=== PATIENT | female | born 1945 | race Caucasian/White ===

== ENCOUNTER 2022-05-27 13:24 | Outpatient (CLI) | payer MEDICARE, BC, SELFPAY ==
--- NOTE | 2022-05-27 13:40 | CRLHL7_ITS ---
For Patients: As a result of the Cures Act, medical imaging exams and procedure reports are released immediately into your electronic medical record. You may view this report before your referring provider. If you have questions, please contact your health care provider. BILATERAL DIGITAL SCREENING MAMMOGRAM WITH COMPUTER-AIDED DETECTION CLINICAL HISTORY: Routine screening exam. COMPARISON: 12/22/2020, 03/30/2019, 08/03/2016, 04/09/2015. TECHNIQUE: Digital mammogram in CC and MLO projections including computer-aided detection (CAD). BREAST COMPOSITION: The breasts are heterogeneously dense, which may obscure small masses. FINDINGS: RIGHT Breast: Focal nodular density within the medial breast CC view only 7 cm from the nipple. LEFT Breast: No suspicious findings. IMPRESSION: RIGHT breast asymmetry/mass. RECOMMENDATIONS: Additional mammographic views of the RIGHT breast including 3D spot compression CC, 3D MLO. RIGHT breast ultrasound may also be required. [facility] will contact the patient for follow-up. BI-RADS Category 0: Incomplete: Need Additional Imaging Evaluation and/or Prior Mammograms for Comparison A lay language report of this examination will be provided to the patient. Dictated by Marco A Deleon MD @ 05/28/2022 8:49:27 AM jj/Dictated by: Marco A Deleon MD @ 05/28/2022 8:49:00 AM (Electronically Signed)
== END 2022-05-27 13:25 | disposition home or self-care (01) ==
LOC: MAMMO 13:27
PROVIDERS: PCP Internal Medicine; Visit Provider Internal Medicine
DX: Z12.31 Encounter for screening mammogram for malignant neoplasm of breast (principal); N63.10 Unspecified lump in the right breast, unspecified quadrant
CPT/HCPCS: 77063; 77067

== ENCOUNTER 2022-06-07 10:50 | Outpatient (CLI) | payer MEDICARE, BC, SELFPAY ==
--- NOTE | 2022-06-07 10:45 | CRLHL7_ITS ---
For Patients: As a result of the Cures Act, medical imaging exams and procedure reports are released immediately into your electronic medical record. You may view this report before your referring provider. If you have questions, please contact your health care provider. DIGITAL DIAGNOSTIC RIGHT MAMMOGRAM USING TOMOSYNTHESIS AND COMPUTER-AIDED DETECTION RIGHT BREAST ULTRASOUND CLINICAL HISTORY: RIGHT breast mass/asymmetry. COMPARISON: 05/27/2022. TECHNIQUE: Digital RIGHT mammogram in two projections. Tomosynthesis and CAD utilized. Real-time ultrasound imaging of RIGHT breast with imaging documentation. BREAST COMPOSITION: The breast is heterogeneously dense, which may obscure small masses. FINDINGS: 3D spot compression CC/MLO RIGHT breast mammogram submitted. Persistent nodular density within the lower inner quadrant RIGHT breast without architectural distortion. Benign calcifications are present. Targeted RIGHT breast ultrasound performed. At 5 o`clock 5 cm from the nipple there is a solid and cystic structure which measures 11 x 6 x 10 millimeters. IMPRESSION: Solid and cystic the structure RIGHT breast 5 o`clock 5 cm from the nipple measuring 11 millimeters. RECOMMENDATIONS: Ultrasound-guided core needle biopsy recommended. Results and recommendations discussed with the patient. BI-RADS Category 4: Suspicious A lay language report of this examination will be provided to the patient. Dictated by Marco A Deleon MD @ 06/07/2022 12:06:29 PM samantha/Dictated by: Marco A Deleon MD @ 06/07/2022 12:06:00 PM (Electronically Signed)
--- NOTE | 2022-06-07 11:15 | CRLHL7_ITS ---
For Patients: As a result of the Cures Act, medical imaging exams and procedure reports are released immediately into your electronic medical record. You may view this report before your referring provider. If you have questions, please contact your health care provider. PLEASE SEE DIGITAL DIAGNOSTIC RIGHT MAMMOGRAM PERFORMED SAME DAY CRL:[email or web address] singh/Dictated by: Marco A Deleon MD @ 06/07/2022 12:06:00 PM (Electronically Signed)
== END 2022-06-07 10:51 | disposition home or self-care (01) ==
PROVIDERS: PCP Internal Medicine; Visit Provider Internal Medicine
DX: N63.10 Unspecified lump in the right breast, unspecified quadrant (principal); N60.01 Solitary cyst of right breast; R92.8 Other abnormal and inconclusive findings on diagnostic imaging of breast
CPT/HCPCS: 76642; 77065; G0279

== ENCOUNTER 2022-06-09 10:21 | Outpatient (CLI) | payer MEDICARE, BC, SELFPAY ==
--- NOTE | 2022-06-09 10:15 | CRLHL7_ITS ---
For Patients: As a result of the Century Cures Act, medical imaging exams and procedure reports are released immediately into your electronic medical record. You may view this report before your referring provider. If you have questions, please contact your health care provider. ULTRASOUND-GUIDED BREAST BIOPSY AND POST-BIOPSY DIGITAL MAMMOGRAM FOR BIOPSY MARKER PLACEMENT CLINICAL HISTORY: Solid and cystic nodule RIGHT breast. COMPARISON STUDIES: 05/27/2022, 06/07/2022. TECHNIQUE: Real-time ultrasound with image documentation was used for targeting the breast lesion. Core biopsy specimens were obtained using an automated gun with an 18-gauge biopsy needle. Post-biopsy CC and ML digital mammograms were obtained to document position of the biopsy marker. CONSENT and TIME OUT: The procedure, risks, and alternatives were explained to the patient and a consent was signed. [place] Protocol was followed including pre-procedure verification that relevant information/documentation was available, reviewed and properly matched to the patient; consent accurate and complete; and equipment and supplies available. Time Out was conducted just prior to starting procedure to verify the four required elements: patient identity, correct side/site marked (if applicable), procedure, relevant images/results properly labeled and displayed (if applicable). PROCEDURE: The patient was positioned supine on the ultrasound table. The breast was prepped with ChloraPrep. 10 cc of 1 percent lidocaine used for local anesthesia. Core samples were obtained. A sterile metal biopsy clip was placed percutaneously to mireya the lesion position within the breast. The specimens were placed in 10% formalin and sent to the pathology department. Pressure was held on the biopsy site until all bleeding subsided. The skin incision was closed with Steri-Strips. An ice pack was positioned over the biopsy site. Post-biopsy instructions were reviewed with the patient, and a written copy was given to her. LATERALITY: RIGHT breast. LESION: Circumscribed solid and cystic nodule measuring 9 x 9 x 10 millimeters at 5 o`clock 5 cm from the nipple. SUSPICION FOR MALIGNANCY: Low. NUMBER OF SAMPLES: 5. BIOPSY CLIP SHAPE: Coil. PROXIMITY OF CLIP TO TARGET: Adjacent to the lesion. IMPRESSION: Ultrasound-guided breast biopsy. The lesion decreased in size during the examination suggestive of primarily cystic components. When the pathology report is available, an addendum to this report will be made. ACR not applicable Dictated by Marco A Deleon MD @ 06/09/2022 12:21:00 PM jj/Dictated by: Marco A Deleon MD @ 06/09/2022 12:21:00 PM ----- ADDENDUM ----- IMPRESSION: Pathology consistent with benign breast tissue, negative for atypia/malignancy. This is concordant. Resume annual bilateral screening mammography. Dictated by Marco A Deleon MD @ Jun 09 2022 12:21PM Signed by:?Marco A Deleon MD @06/09/2022 4:13:09 PM (Electronically Signed)
--- NOTE | 2022-06-09 11:00 | CRLHL7_ITS ---
For Patients: As a result of the Cures Act, medical imaging exams and procedure reports are released immediately into your electronic medical record. You may view this report before your referring provider. If you have questions, please contact your health care provider. PLEASE SEE ULTRASOUND-GUIDED RIGHT BIOPSY PERFORMED SAME DAY CRL:[email or web address] [email or web address]/Dictated by: Marco A Deleon MD @ 06/09/2022 12:18:00 PM (Electronically Signed)
== END 2022-06-09 10:22 | disposition home or self-care (01) ==
LOC: US 10:23
PROVIDERS: PCP Internal Medicine; Visit Provider Internal Medicine
DX: N63.10 Unspecified lump in the right breast, unspecified quadrant (principal); R92.8 Other abnormal and inconclusive findings on diagnostic imaging of breast
CPT/HCPCS: 19083; 77065; 88305; A4648; A4649

== ENCOUNTER 2022-07-30 10:56 | Outpatient (CLI) | payer MEDICARE, BC, SELFPAY ==
[2022-07-30 10:47] LABS: Albumin* 4.3 g/dL (3.3-5.0); Chloride* 108 mmol/L (96-114); Sodium* 143 mmol/L (135-149)
[2022-07-30 10:48] LABS: Potassium* 3.8 mmol/L (3.6-5.1)
[2022-07-30 10:50] LABS: Alanine Aminotransferase* 17 U/L (4-35); Alkaline Phosphatase* 80 U/L (40-150); Aspartate Amino Transferase* 19 U/L (12-35); Bilirubin Total* 0.8 mg/dL (0.1-1.5); Blood Urea Nitrogen* 20 mg/dL (7-30); Calcium* 9.4 mg/dL (8.4-10.6); Carbon Dioxide* 24 mmol/L (20-32); Cholesterol* 236 mg/dL (90-199); Creatinine* 0.8 mg/dL (0.5-1.5); Estimated Glomerular Filt Rate 77 ml/min; Glucose* 161 mg/dL (60-115); Total Protein* 6.7 g/dL (6.0-8.3)
[2022-07-30 10:51] LABS: HDL Cholesterol* 38 mg/dL (>=50); LDL Cholesterol Calculated 100 mg/dL (<100); Triglycerides* 489 mg/dL (40-149)
[2022-07-30 11:04] LABS: Creatinine Urine 331.9 mg/dL
[2022-07-30 11:08] LABS: Microalbumin Urine 5 mg/dL
[2022-07-30 12:13] LABS: Microalbumin Creatinine Ratio 15 mg/g (0-30)
== END 2022-07-30 10:57 | disposition home or self-care (01) ==
PROVIDERS: PCP Internal Medicine; Visit Provider Internal Medicine
DX: E11.9 Type 2 diabetes mellitus without complications (principal); E78.5 Hyperlipidemia, unspecified; I10 Essential (primary) hypertension; R80.9 Proteinuria, unspecified; R07.89 Other chest pain
CPT/HCPCS: 80053; 80061; 82043; 82570

== ENCOUNTER 2023-06-28 15:48 | Outpatient (CLI) | payer MEDICARE, BC, SELFPAY ==
--- NOTE | 2023-06-28 15:40 | CRLHL7_ITS ---
For Patients: As a result of the Century Cures Act, medical imaging exams and procedure reports are released immediately into your electronic medical record. You may view this report before your referring provider. If you have questions, please contact your health care provider. BILATERAL SCREENING MAMMOGRAM WITH COMPUTER-AIDED DETECTION AND TOMOSYNTHESIS TECHNIQUE: CC and MLO views were obtained. These mammographic images have been obtained using full-field digital technique. These mammographic images were interpreted with the benefit of computer-aided detection. Breast Tomosynthesis was used in this interpretation. COMPARISON FILM: 05/27/22, 12/22/20, 03/30/19. FINDINGS: The breasts are heterogeneously dense, which may obscure small masses IMPRESSION: There is no radiographic evidence for malignancy. ASSESSMENT: BI-RADS Category 2: Benign RECOMMENDATION: Routine screening mammogram in 1 year. A lay language report of this examination will be provided to the patient. Marco A Deleon M.D. Diagnostic Radiologist [email or web address] MARGUERITE/Dictated by: Marco A Deleon MD @ 06/29/2023 8:42:00 AM (Electronically Signed)
== END 2023-06-28 15:49 | disposition home or self-care (01) ==
LOC: MAMMO 15:50
PROVIDERS: PCP Internal Medicine; Visit Provider Internal Medicine
DX: Z12.31 Encounter for screening mammogram for malignant neoplasm of breast (principal); R92.2 Inconclusive mammogram
CPT/HCPCS: 77063; 77067

== ENCOUNTER 2024-02-24 12:39 | Outpatient (CLI) | payer MEDICARE, BC, SELFPAY ==
--- OUTSIDE RECORDS SUMMARY | 2024-02-24 12:43 | XMS_ITS | Encounter Summary ---
Author Organization [facility] Address [address] [place] [address]. [place] [address] Care Team Providers Care Sales Special Agent Name Role Phone None Primary Care Provider Unavailjulia e Ying Gutierrez MD Unavailable Katie Bowen MD Unavailable [phone] Geneva Weber RN Unavailable Kiana Villanueva Np PERIOPERATIVE ASSISTANT Unavailable [phone] Christina Lilly MD Unavailable No Ref-Primary, Physician Primary Care Provider Kiarra Winter RN Unavailable Christina Lilly MD Unavailable [facility], Rangel Romero Primary Care Provider + Encounter Details Date Type Department Care Team (Late st Contact Info) Description 11/28/2016 [facility] Medical Advice [facility] [address] [place] [address] Lima Fraga APRN [facility] [address] [facility] [address] [place] [address] Social History Tobacco Use Types Packs/Day Years Used Date Smoking Tobacco: Former Cigarettes 0 08/08/1954 - 08/08/1969 Smokeless Tobacco: Never Alcohol Use Standard Drinks/Week Comments No 0 (1 standard drink = 0.6 oz pur e alcohol) Sex and Gender Information Value Date Recorded Sex Assigned at Female 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 Gender Identity Female 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 Sexual Orientation Not on file documented as of this encounter Plan of Treatment Not on file documented as of this encounter Visit Diagnoses Not on filedocumented in this encounter Care Teams Sales Special Agent Relationship Specialty Start Date End Date None PCP - General 10/26/16 04/07/17 No Ref-Primary, Physician PCP - General 06/07/23 07/12/23 [facility], Rangel Romero [address] [place] [address] [place] [phone] PCP - General 07/13/23 Ying Gutierrez MD [address] [place] [address] [id number] MD Oncology 11/02/16 Katie Bowen MD [address] [place] [address] [phone] Gynecologic Oncology 11/02/16 Geneva Weber RN [facility] [employer], [phone] Continuity Bakery Decorator Gynecologic Oncology 11/08/16 12/12/19 Kiana Villanueva Certified Activities Director, PERIOPERATIVE ASSISTANT [address] [place] [phone] Nurse Practitioner 06/07/23 Christina Lilly MD [address] [place] [phone] Gynecologic Oncology 06/07/23 Kiarra Winter, VAN Specialty Bakery Decorator Hematology & Oncology 06/14/23 Christina Lilly MD [address] [phone] Assigned Cancer Care Provider 06/25/23 documented as of this encounter
--- OUTSIDE RECORDS SUMMARY | 2024-02-24 12:43 | XMS_ITS | Encounter Summary ---
Author Organization [facility] Address [address] [place] [address]. [place] [address] Care Team Providers Care Computer Hardware Developer Name Role Phone None Primary Care Provider Unavailjulia e Ying Gutierrez MD Unavailable Katie Bowen MD Unavailable eGneva Weber RN Unavailable Kiana Villanueva Np INDUSTRIAL AERIAL INSTALLER Unavailable Christina Lilly MD Unavailable No Ref-Primary, Physician Primary Care Provider Kiarra Winter RN Unavailable Christina Lilly MD Unavailable [facility], Rangel Romero Primary Care Provider + Encounter Details Date Type Department Care Team (Late st Contact Info) Description 12/12/2016 [facility] Medical Advice [facility] [address] [place] [address] Lima Fraga APRN [facility] [address] [facility] [address] [place] [address] Social History Tobacco Use Types Packs/Day Years Used Date Smoking Tobacco: Former Cigarettes 0 08/08/1954 - 08/08/1969 Smokeless Tobacco: Never Alcohol Use Standard Drinks/Week Comments No 0 (1 standard drink = 0.6 oz pur e alcohol) Sex and Gender Information Value Date Recorded Sex Assigned at Female 06/12/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 Gender Identity Female 06/12/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 Sexual Orientation Not on file documented as of this encounter Plan of Treatment Not on file documented as of this encounter Visit Diagnoses Not on filedocumented in this encounter Care Teams Computer Hardware Developer Relationship Specialty Start Date End Date None PCP - General 10/26/16 04/07/17 No Ref-Primary, Physician PCP - General 06/07/23 07/12/23 [facility], Rangel Romero [address] [place] [address] [place] [phone] PCP - General 07/13/23 Ying Gutierrez MD [address] [place] [address] [phone] MD Oncology 11/02/16 Katie Bowen MD [address] [place] [address] [phone] Gynecologic Oncology 11/02/16 Geneva Weber RN [facility] [place], [phone] Continuity [employer] Gynecologic Oncology 11/08/16 12/12/19 Kiana Villanueva Golf Club Repairer, INDUSTRIAL AERIAL INSTALLER [address] [place] [id number] Nurse Practitioner 06/07/23 Christina Lilly MD [address] [place] [phone] Gynecologic Oncology 06/07/23 Kiarra Winter, VAN Specialty [employer] Hematology & Oncology 06/14/23 Christina Lilly MD [address] [address] Assigned Cancer Care Provider 06/25/23 documented as of this encounter
--- OUTSIDE RECORDS SUMMARY | 2024-02-24 12:43 | XMS_ITS | Clinical Summary ---
Author Organization [facility] Address [place], [place] [address] Care Team Providers Care Simulation Educator Name Role Phone Jenny Masters MD Primary Care Provider [phone] Katie Bowen MD Unavailable [phone] Charlene Stanton PharmD Unavailable [phone] Allergies Active Allergy Reactions Criticality Noted Date Comments Iodinated Contrast Media *Unknown - Childhood Rxn 01/09/2013 Uknown contrast reaction when young. She has tolerated Isovue 300 (iopamidol - 2011 CT scan) and Omnipaque (ioxehol - 2010 and 2012 and 2015 epidural steroid injections) Medications Medication Sig Dispensed Refills Start Date End Date Status metFORMIN (GLUCOPHAGE XR) 500 mg Extended-Release tabletIndications: Type 2 diabetes mellitus without complication, without long-term current use of insulin (HC) Take 1 Tablet (500 mg) by mouth once daily with evening meal. 90 Tablet 3 06/17/20 23 Active blood sugar diagnostic (Blood Glucose Test) stripIndications:T ype 2 diabetes mellitus without complication, without long-term current use of insulin (HC) For Contour next EZ. Test 1 times per day. 100 Each 06/17/20 23 Active lancets (Microlet Lancet)Indications :Type 2 diabetes mellitus without complication, without long-term current use of insulin (HC) USE TO TEST 2-3 TIMES DAILY 300 Each 3 09/26/19 24 Active HYDROcodone-acetam inophen ([place]) (5-325 mg/tablet)Indicati ons:Chronic right-sided low back pain without sciatica Take 1 Tablet by mouth every 6 hours if needed for Pain. Max acetaminophen dose: 4000 mg in 24 hrs. 20 Tablet 10/13/19 24 Active losartan (COZAAR) 25 mg tabletIndications: Essential hypertension Take 1 Tablet (25 mg) by mouth once daily. 90 Tablet 10/17/19 24 Active glipiZIDE extended-release (GLUCOTROL XL) 10 mg Extended-Release tabletIndications: Type 2 diabetes mellitus without complication, without long-term current use of insulin (HC) TAKE 1 TABLET(10 MG) BY MOUTH DAILY BEFORE A MEAL 90 Tablet 3 01/16/20 24 Active cyanocobalamin (Vitamin B-12) 1,000 mcg tablet Take 1 Tablet (1,000 mcg) by mouth once daily. 01/16/20 24 Active loperamide (IMODIUM) 2 mg capsuleIndications :Chronic diarrhea Take 2 Capsules (4 mg) by mouth 2 times daily if needed for Diarrhea. 120 Capsule 01/16/20 24 Active amLODIPine (NORVASC) 5 mg tabletIndications: Essential hypertension Take 1 Tablet (5 mg) by mouth once daily. 90 Tablet 3 01/16/20 24 Active atenoloL (TENORMIN) 25 mg tabletIndications: Essential hypertension Take 1 Tablet (25 mg) by mouth once daily. Takes at bedtime 90 Tablet 3 01/16/20 24 Active atorvastatin (LIPITOR) 80 mg tabletIndications: Mixed hyperlipidemia Take 1 Tablet (80 mg) by mouth once daily. 90 Tablet 3 01/16/20 24 Active furosemide (LASIX) 40 mg tabletIndications: Essential hypertension Take 1 Tablet (40 mg) by mouth once daily. 90 Tablet 3 01/16/20 24 Active sertraline (ZOLOFT) 25 mg tabletIndications: Dysthymia Take 1 Tablet (25 mg) by mouth once daily. 90 Tablet 3 01/16/20 24 Active CPAPIndications:Ob structive sleep apnea CPAP (E0601) machine for home use at pressure: , Choice of mask (A7030 or A7034) w/full face cushion (A7031) x1/mo, nasal cushion (A7032) x2/mo, or nasal pillows (A7033) x 2/mo; Length of Need: 99 months; Frequency of use: Daily 02/07/20 24 Active cholecalciferol, Vitamin D3, 2,000 unit tabletIndications: Vitamin D deficiency Take 1 Tablet (2,000 units) by mouth once daily. 02/07/20 24 Active omeprazole 20 mg tabletIndications: Chronic GERD Take 1 Tablet (20 mg) by mouth once daily. 90 Tablet 02/07/20 24 Active acetaminophen (TYLENOL) 325 mg tabletIndications: Spinal stenosis of lumbar region, unspecified whether neurogenic claudication present Take 2 Tablets (650 mg) by mouth every 4 hours if needed for Pain. Max acetaminophen dose: 4000mg in 24 hrs. 02/07/20 24 Active gabapentin (NEURONTIN) 300 mg capsuleIndications :Lumbar radiculopathy Take 1 Capsule (300 mg) by mouth at bedtime. 30 Capsule 2 02/08/20 24 Active SITagliptin phosphate (Januvia) 50 mg tabletIndications: Type 2 diabetes mellitus without complication, without long-term current use of insulin (HC) TAKE 1 TABLET(50 MG) BY MOUTH DAILY 60 Tablet 02/14/20 24 Active aspirin (ECOTRIN) 81 mg enteric coated tablet Take 1 tablet by mouth once daily with a meal. 0 02/26/20 16 024 Discontinued(*M ed complete/Regime n complete/Level of care change) clotrimazole (LOTRIMIN) 1 % cream APPLY TOPICALLY TO AFFECTED AREA TWO TIMES DAILY 10/25/19 23 024 Discontinued(*M ed complete/Regime n complete/Level of care change) cholecalciferol (Vitamin D) 1,000 unit capsule Take 1,000 units by mouth once daily. 024 Discontinued(*M ed complete/Regime n complete/Level of care change) zhoiafio-czs-bxtb- vitamin K 18 mg iron-25 mcg tab Take 1 Tablet by mouth once daily. 024 Discontinued(*M ed complete/Regime n complete/Level of care change) ascorbic acid chewable 250 mg chew Chew 250 mg by mouth. 024 Discontinued(*M ed complete/Regime n complete/Level of care change) zinc gluconate 50 mg tablet Take 50 mg by mouth. 024 Discontinued(*M ed complete/Regime n complete/Level of care change) Rptng-7-TEA-EPA-Fi sh Oil 1,000 mg (120 mg-180 mg) cap Take 1 Capsule (1,000 mg) by mouth. 01/16/20 24 024 Discontinued(*M ed complete/Regime n complete/Level of care change) glucosam-chondroit -C-manganese 500-400-2-0.33 mg cap Take by mouth. 01/16/20 24 024 Discontinued(*M ed complete/Regime n complete/Level of care change) Apple Cider Vinegar 300 mg tablet Take by mouth. 01/16/20 24 024 Discontinued(*M ed complete/Regime n complete/Level of care change) SITagliptin phosphate (JANUVIA) 50 mg tabletIndications: Type 2 diabetes mellitus without complication, without long-term current use of insulin (HC) Take 1 Tablet (50 mg) by mouth once daily. 30 Tablet 01/16/20 24 024 Discontinued CPAPIndications:Ob structive sleep apnea CPAP (E0601) machine for home use at pressure: , Choice of mask (A7030 or A7034) w/full face cushion (A7031) x1/mo, nasal cushion (A7032) x2/mo, or nasal pillows (A7033) x 2/mo; Length of Need: 99 months; Frequency of use: Daily 1 Each 11 01/16/20 24 024 Discontinued(Re order (E-cancel not sent)) LORazepam (ATIVAN) 0.5 mg tabIndications:Cla ustrophobia Take 1 tablet 30 minutes before Procedure 1 Tablet 01/16/20 24 024 Discontinued(*M ed complete/Regime n complete/Level of care change) Active Problems Problem Noted Date Diagnosed Date Obstructive sleep apnea, uses CPAP 01/16/2024 Vulvar carcinoma 10/05/2016 Overview: - 10/05/2016 Radical vulvectomy with bilateral sentinel lymph node dissection. Final pathology 2.0x1.2x.4cm, grade 3, 1 positive left inguinal node <5mm. Stage IIIA. - Adjuvant RT to groins and pelvis at [facility]. Completed 5/6 cycles of weekly Cis (unable to complete last cycle due to side effects) Dyslipidemia 09/21/2016 10/31/2022 Lumbar spinal stenosis 03/05/2016 DDD (degenerative disc disease), lumbar 12/08/19 16 Type 2 diabetes mellitus wit hout complication, without long-term current use of insulin Essential hypertension Chronic diarrhea Resolved Problems Problem Noted Date Diagnosed Date Resolved Date Lumbar radicular pain 12/08/20152022 Encounters Date Type Department Care Team Description 02/22/2024 Travel 02/20/[address] [phone] Jenny Masters MD Refill Request (C-pap machine) 02/15/[address] [phone] Jenny Masters MD RETUN CALL 02/15/[address] [phone] Jenny Masters MD DME Supply 02/13/[address] [address] Charlene Stanton, PharmAmy INFORMATION FROM APPOINTMENT 02/13/2024 Patient Outreach [address] [address] Charlene Stanton PharmD Pharmacist Medication Management (CMR follow-up - return call - medication cost) 02/13/[address] [phone] Jenny Masters MD Refill Request (Januvia) 02/10/[address] [phone] Jenny Masters MD ACC Order Request (CPAP) 02/08/2024 2:00 PM CDT Office Visit [facility] [address] [place] [address] Juan Zavala MD Musculoskeletal Problem (Consult low back pain, last seen in 2015, review MRI) 02/08/2024 Patient Outreach [facility] Care Management - Advanced Care Team [address] [place] [address] Dominique Vasques Medication Management (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) 02/07/2024 1:00 PM CDT Pharmacist Medication Management [address] [address] Charlene Stanton PharmD Pharmacist Medication Management (CMR initial - provider referral - in-clinic/diabetes management) 02/07/2024 Travel 01/25/2024 2:30 PM CDT Ancillary Procedure [address] [phone] 01/25/2024 12:16 PM CDT - 01/25/2024 11:59 PM CDT Hospital Encounter [facility] [address] [place] [address] Jenny Masters MD Chronic bilateral low back pain with right-sided sciatica 01/24/2024 Travel 01/18/2024 Patient Outreach [facility] Care Management - Advanced Care Team [address] [place] [address] Dominique Vasques Medication Management (COMPREHENSIVE MEDICATION REVIEW - PROVIDER REFERRAL - unsure if covered) 01/16/2024 2:00 PM CDT Office Visit [address] [phone] Jenny Masters MD Medicare ANNUAL (subsequent) Visit (Pain in lower back that radiates to right hip. Pain Radiates down right leg. /Left foot has some Neuropathy./Head aches and Neck Ache ) 01/16/[address] [phone] Jenny Masters MD Questions 01/16/2024 Travel 01/14/[address] [phone] Jenny Masters MD Refill Request (Glipizide Extended-release) from Last 3 Months Immunizations Name Administration Dates Next Due Influenza, High-dose Quadrivalent Inactivated ,05/19/2021 Pneumococcal Poly,23-Valent (Pneumovax) 06/01/20 12 Pneumococcal conj 13-Valent (Prevnar 13) 015 Td (Age >=7 Years) 05/08/2020 Tdap 01/14/2010 Family History Medical History Relation Name Comments Throat cancer Brother 1 Heart attack Brother 2 Manuel Diabetes Father Cancer-pancreatic Mother Relation Name Status Comments Brother 1 Alive Brother 2 Manuel (Age 38) Father Mother Social History Tobacco Use Types Packs/Day Years Used Date Smoking Tobacco: Former Cigarettes 0.5 27 1 952 - 1978 Smokeless Tobacco: Never Tobacco Cessation:Counseling Given: Yes Alcohol Use Standard Drinks/Week Comments Not Currently 0 (1 standard drink = 0.6 oz pur e alcohol) PHQ-2 Answer Date Recorded PHQ-2 TOTAL SCORE 0 01/16/2024 Social Connections Answer Date Recorded Frequency of Communication with Friends and Fami ly 0 01/16/2024 Financial Resource Strain Answer Date R ecorded Difficulty of Paying Living Expenses 3 01/16/2024 Difficulty of Paying Living Expenses Not on file 01/16/2024 Food Insecurity Answer Date Recorded Worried About Running Out of Food in the Last Ye ar 1 01/16/2024 Transportation Needs Answer Date Record ed Lack of Transportation (Medical) 1 01/16/2024 Housing Stability Answer Date Recorded Unable to Pay for Housing in the Last Year 1 01/16/2024 Sex and Gender Information Value Date Recorded Sex Assigned at Female 02/03/2023 10:18 PM CDT Gender Identity Female 02/03/2023 10:18 PM CDT Sexual Orientation Not on file Obstetrics History Last Filed Vital Signs Vital Sign Reading Time Taken Comments Blood Pressure 158/79 02/08/2024 2:41 PM CDT Pulse 52 02/08/2024 2:41 PM CDT Temperature 36.8 ??C (98.2 ??F) 02/08/2024 2:41 PM CD T Respiratory Rate 16 09/08/2023 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 Oxygen Saturation 97% 02/08/2024 2:41 PM CDT Inhaled Oxygen Concentration - - Weight 80.2 kg (176 lb 12.8 oz) 02/08/2024 2:41 PM CDT shoes on Height 153 cm (5' 0.25) 01/16/2024 2:25 PM CDT Body Mass Index 34.24 01/16/2024 2:25 PM CDT Plan of Treatment Upcoming Encounters Date Type Department Care Team (Late st Contact Info) Description 02/24/2024 1:00 PM CDT Office Visit [facility] [address] [place] [address] Juan Zavala MD [address] [place] [address] Arrived 03/06/2024 2:00 PM CDT Pharmacist Medication Management [facility] [address] [place] [address] Charlene Stanton PharmD [address] [place] [phone] 04/17/2024 12:30 PM CDT Office Visit [facility] [address] [place] [address] Jenny Masters MD [address] [place] [address] 05/22/2024 2:00 PM CDT Office Visit [facility] [address] [place] [address] Claudio Albarado MD [address] [place] [address] Health Maintenance Due Date Last Done Comments Zoster (shingles) series for age 50+ (1 of 2) 1997 COVID-19 vaccine series ( season) 2023 06/04/2021, 11/08/2020 Influenza for age 65+ 04/08/2024 06/03/2022, 021 BMI (ht and wt on same day) for age 18+ 01/15/2025 01/16/2024, 07/08/2023, 06/17/2023, Additional history exists Medicare Wellness for age 65+ 01/16/2025 01/16/2024, 02/04/2023 Depression screening for age 12+ 01/17/2025 01/18/2024, 01/16/2024, 01/16/2024, Additional history exists Tetanus booster 05/08/2030 05/08/2020, 01/14/2010 Tdap Completed 01/14/2010 Pneumococcal series for age 65+ Completed 5, 06/01/2012 Hepatitis C screening for ag e 18-79 Completed 02/04/2023 DEXA/DXA scan for age 65+ Completed 01/25/2024 Procedures Procedure Name Priority Date/Time Associated Diagnosis Comments AMB EPIDURAL STEROID INJECTION Routine 02/24/2024 8:24 AM CDT Lumbar radiculopathy Lumbar disc herniation DDD (degenerative disc disease), lumbar Lumbar facet arthropathy XR DXA BONE DENSITY 2 SITES AXIAL Routine 01/25/2024 1:37 PM CDT Postmenopausal MR SPINE LUMBAR WO KIM 01/25/2024 1: 04 PM CDT Chronic bilateral low back pain with right-sided sciatica URINE ALBUMIN TO CREATININE RATIO, RANDOM Routine 01/16/2024 2:16 PM CDT Type 2 diabetes mellitus without complication, without long-term current use of insulin (HC) LIPID PANEL W REFLEX MEASURED LDL Routine 01/16/2024 2:12 PM CDT Type 2 diabetes mellitus without complication, without long-term current use of insulin (HC) HEMOGLOBIN A1C Routine 01/16/2024 2:12 PM CDT Type 2 diabetes mellitus without complication, without long-term current use of insulin (HC) LC HCV ANTIBODY RFX TO QUANT PCR Routine 02/04/2023 3:05 PM CDT Need for hepatitis C screening test from Last 3 Months or Most Recently Relevant to Health Maintenance Results * XR DXA BONE DENSITY 2 SITES AXIAL (01/25/2024 1:37 PM CDT) Anatomical Region Laterality Modality Spine, HIPS, HIPL, HIPR Computed Radiography Impressions 01/30/2024 9:10 AM CDT Osteopenia. RECOMMENDATIONS: ??The National Osteoporosis Foundation recommends pharmacologic treatment for patients with T-scores of -2.5 or less, patients with prior history of fragility fractures, or patients with 10-year probability of greater than 3% at hips or greater than 20% of suffering major osteoporotic fractures. Recommend continued optimization of calcium and vitamin D intake through dietary means and/or supplementation and regular exercise. Kevin Rob M.D. Diagnostic/Nuclear Medicine Radiologist [email or web address] [email or web address] / Narrative 01/30/2024 9:10 AM CDT For Patients: Results are automatically released to your [employer] account once available, in compliance with federal regulations. This means that you may see your results before your provider has had a chance to review them. Please allow 2-3 business days for your provider to comment on the results. XR DXA Bone Mineral Density (BMD) EXAM LOCATION: [address] [address] PATIENT NAME: Bobbi Howell DATE OF : 1945 EXAM DATE: 01/25/2024 REQUESTING PROVIDER: Jenny Masters MD GENDER AT : female HEIGHT: 60 inches WEIGHT: 175 pounds MENOPAUSAL STATUS: Postmenopausal ?? RACE/ETHNICITY: White ?? RISK FACTORS: History of Fragility Fracture (at a major site), Smoking (prior), White Race, and Diabetes type 2. CURRENT MEDICATION FOR BONE LOSS: NONE INDICATION: Post-Menopausal COMPARISON DATE(S): None DXA scans are compared to prior studies for a patient only when the two (or more) studies were performed on the same scanner. It is not possible to compare data generated on one scanner to data from another because there are not standards in DXA equipment. This applies even if the two scanners are made by the same groundskeeper supervisor. PROCEDURE: Dual-energy x-ray absorptiometry performed with routine technique. Reporting is completed in the form of a T-score. The T-score represents the standard deviation from peak bone mass based on young healthy adult. A Z-score is used for diagnosis in premenopausal women, and for men under the age of 50. FINDINGS: RESULT LUMBAR SPINE L1 - L4 BMD: 1.295 g/cm2 T-Score: + 1.0 Z-Score: + 2.3 RESULTS FEMUR Left femoral neck BMD: 0.806 g/cm2 T-Score: - 1.7 Z-Score: + 0.0 Right femoral neck BMD: 0.816 g/cm2 T-Score: - 1.6 Z-Score: + 0.1 Left total hip BMD: 0.900 g/cm2 T-Score: - 0.9 Z-Score: + 0.6 Right total hip BMD: 0.849 g/cm2 T-Score: - 1.3 Z-Score: + 0.2 WHO criteria: Normal: T-score at or above -1 SD Osteopenia: T-score between -1.1 and -2.4 SD Osteoporosis: T-score at or below -2.5 SD LEFT: FRAX RISK CALCULATION (USED FOR OSTEOPENIA ONLY): 10-year probability of major osteoporotic fracture: 17.9%. 10-year probability of hip fracture: 3.7%. Jenny Masters MD DEXA * MR SPINE LUMBAR WO (01/25/2024 1:04 PM CDT) Anatomical Region Laterality Modality Spine, LUMBAR SPINE Magnetic Res onance 01/25/2024 1:20 PM CDT Narrative 01/25/2024 1:20 PM CDT For Patients: ??As a result of the Cures Act, medical imaging exams and procedure reports are released immediately into your electronic medical record. ??You may view this report before your referring provider. ??If you have questions, please contact your health care provider. Indication: Low back pain. Sciatica. Technique: Multiplanar, multisequence MRI of the lumbar spine was performed without intravenous contrast. Comparison: None relevant available. Findings: There are 5 lumbar type vertebral segments identified. The vertebral body heights are maintained without evidence of fracture. There is no discrete T1 hypointense marrow infiltrating process. The conus medullaris terminates at T12-L1, normal. Cauda equina appears unremarkable. T12-L1: No spinal canal or neural foraminal stenosis. Mild facet arthropathy. L1-2: Disc degeneration. Minimal disc bulge without spinal canal narrowing. Mild neural foraminal narrowing. Mild facet arthropathy. L2-3: Disc degeneration. Disc bulge coupled with ligamentum flavum thickening and facet hypertrophy results in mild spinal canal narrowing. Mild neural foraminal narrowing. Mild facet arthropathy. L3-4: ??Disc degeneration. Disc bulge with facet hypertrophy results in mild spinal canal narrowing. Mild neural foraminal narrowing. Mild facet arthropathy. L4-5: Disc degeneration. Disc bulge couple of ligamentum flavum thickening and facet hypertrophy results in wgwj-op-xkajdwkg spinal canal narrowing. Mild neural foraminal narrowing. Moderate facet arthropathy. L5-S1: ??Disc degeneration. Disc bulge coupled with facet hypertrophy results in mild spinal canal narrowing. There is moderate right lateral recess narrowing secondary to subarticular disc protrusion and facet hypertrophy. This encroaches upon the descending right S1 nerves. Mild neural foraminal narrowing. Moderate facet arthropathy. Mild sacroiliac joint osteoarthritis. Impression: 1. At L5-S1, right subarticular disc protrusion combined with facet hypertrophy encroaches upon the descending right S1 nerves. 2. At L4-5, alcr-is-niawhlhq spinal canal narrowing. 3. Mild spondylosis at the remaining lumbar levels. Dictated by Jeremiah Rice MD @ 01/25/2024 1:20:47 PM (Electronically Signed) Procedure Note Jeremiah Rice, - 01/25/2024 For Patients: As a result of the Cures Act, medical imagingexams and procedure reports are released immediately into your electronicmedical record. You may view this report before your referring provider.If you have questions, please contact your health care provider. Indication: Low back pain. Sciatica. Technique: Multiplanar, multisequence MRI of the lumbar spine was performed withoutintravenous contrast. Comparison: None relevant available. Findings: There are 5 lumbar type vertebral segments identified. The vertebral bodyheights are maintained without evidence of fracture. There is no discreteT1 hypointense marrow infiltrating process. The conus medullaris terminates at T12-L1, normal. Cauda equina appearsunremarkable. T12-L1: No spinal canal or neural foraminal stenosis. Mild facetarthropathy. L1-2: Disc degeneration. Minimal disc bulge without spinal canalnarrowing. Mild neural foraminal narrowing. Mild facet arthropathy. L2-3: Disc degeneration. Disc bulge coupled with ligamentum flavumthickening and facet hypertrophy results in mild spinal canal narrowing.Mild neural foraminal narrowing. Mild facet arthropathy. L3-4: Disc degeneration. Disc bulge with facet hypertrophy results inmild spinal canal narrowing. Mild neural foraminal narrowing. Mild facetarthropathy. L4-5: Disc degeneration. Disc bulge couple of ligamentum flavum thickeningand facet hypertrophy results in ljrj-vu-lnwkscsj spinal canal narrowing.Mild neural foraminal narrowing. Moderate facet arthropathy. L5-S1: Disc degeneration. Disc bulge coupled with facet hypertrophyresults in mild spinal canal narrowing. There is moderate right lateralrecess narrowing secondary to subarticular disc protrusion and facethypertrophy. This encroaches upon the descending right S1 nerves. Mildneural foraminal narrowing. Moderate facet arthropathy. Mild sacroiliac joint osteoarthritis. Impression: 1. At L5-S1, right subarticular disc protrusion combined with facethypertrophy encroaches upon the descending right S1 nerves. 2. At L4-5, tztt-qw-ralyhoey spinal canal narrowing. 3. Mild spondylosis at the remaining lumbar levels. Dictated by Jeremiah Rice MD @ 01/25/2024 1:20:47 PM (Electronically Signed) Jenny Masters MD MR * URINE ALBUMIN TO CREATININE RATIO, RANDOM (01/16/2024 2:16 PM CDT) ALB RAND URINE 46.5 mg/L 01/17/2024 4:14 AM CDT [facility] CREATININE,URIN E 2.67 g/L 01/17/2024 4:14 AM CDT [facility] ALBUMIN TO CREATININE RATIO,RAND UR 17.4 <30.0 mg/g creat 01/17/2024 4:14 AM CDT [facility] Urine URINE SPECIMEN / Unknown Non-Blood / Unknown 01/16/2024 2:16 PM CDT 01/16/2024 2:[address] [facility] - 01/17/2024 4:14 AM CDT If Albumin to Creatinine Ratio is elevated, consider the following: ? Elevations seen with incipient nephropathy associated ?? with diabetes mellitus or hypertension. Stress, exercise,hematuria, ?? and urinary tract infection may also produce elevated results. If clinically indicated, confirm with ?24 Hour Albumin to Creatinine Ratio. ?? Jenny Masters MD URINE Performing Organization Address City/[facility]/ZIP Co de Phone Number [facility] [address] [place] [address], * (ABNORMAL) LIPID PANEL W REFLEX MEASURED LDL (01/16/2024 2:12 PM CDT) CHOLESTEROL,TOTAL 163 100 - 199 mg/dL 01/16/2024 4:19 PM [facility] Comment: Cholesterol, Total Reference Ranges Desirable <200 mg/dL Borderline 200-239 mg/dL High >=240 mg/dL TRIGLYCERIDES 342(H) <150 mg/dL 01/16/2024 4:19 PM [facility] HDL CHOLESTEROL 37(L) >40 mg/dL 4:19 PM [facility] NON-HDL CHOLESTEROL 126 <145 mg/dl 01/16/2024 4:19 PM [facility] CHOL/HDL RATIO 4.41 <4.50 01/16/2024 4:19 PM [facility] LDL CHOLESTEROL 58 <=130 mg/dL 01/16/2024 4:19 PM [facility] VLDL CHOLESTEROL 68(H) <=30 mg/dL 01/16/2024 4:19 PM [facility] PROVIDER ORDERED STATUS RANDOM 01/16/2024 4:19 PM [facility] Blood BLOOD SPECIMEN / Unknown Venipuncture / Unknown 01/16/2024 2:12 PM CDT 01/16/2024 3:21 PM CDT Jenny Masters MD CHEMISTRY [facility] [address] [place] [address] * (ABNORMAL) HEMOGLOBIN A1C MONITORING (POCT) (01/16/2024 2:12 PM CDT) [facility] HEMOGLOBIN A1C MONITORING (POCT) 8.3(H) <=6.4 % 01/16/2024 2:24 PM CDT [facility] Blood BLOOD SPECIMEN / Unknown Venipuncture / Unknown 01/16/2024 2:12 PM CDT 01/16/2024 2:12 PM CDT Narrative [facility] - 01/16/2024 2:24 PM CDT ? (<=6.9%) ? Indicates good control ? (7.0% to 7.9%) ? Indicates fair control ? (>=8.0%) ? Indicates poor control ?? NOTE: ??These thresholds are guidelines and ?individual targets may vary. Falsely low levels may be seen with: Recent Transfusion, Recent Significant Blood Loss, Hemolytic Diseases, or Falsely elevated levels may be seen with: Untreated Anemias, Splenectomy ? Jenny Masters MD CHEMISTRY [facility] [address] [place] [address] * LC HCV ANTIBODY RFX TO QUANT PCR (02/04/2023 3:05 PM CDT) [facility] HCV Ab Non Reactive Non Reactive 02/08/2023 11:[address] [facility] Blood BLOOD SPECIMEN / Unknown Venipuncture / Unknown 02/04/2023 3:05 PM CDT 02/04/2023 3:05 PM CDT Narrative [facility] ([facility]) - 02/08/2023 11:08 AM CDT Performed at: ??01 - [facility] [address] ??[id number] Automotive Project Engineer: Librado Auguste MD, Phone: ??[phone] Jenny Masters MD LABORATORY [facility] ([facility]) [address] [place], [place] [id number], from Last 3 Months or Most Recently Relevant to Health Maintenance Care Teams Simulation Educator Relationship Specialty Start Date End Date Jenny Masters MD [address] [place] [id number] PCP - General Internal Medicine 11/01/22 Katie Bowen MD [facility] - 5th floor [address] [place] [address] Oncology - Gynecologic 11/01/22 Charlene Stanton, PharmD [address] [place] [address] OL[place]IER PIERRE [id number] Pharmacist Medication Management Pharmacology 02/07/24 02/06/27
--- OUTSIDE RECORDS SUMMARY | 2024-02-24 12:43 | XMS_ITS | Clinical Summary ---
Author Organization [facility] Address [address] [place] [address] Care Team Providers Care Ic Designer Standard Cells Name Role Phone Lashell Delgadillo MD Primary Care Provider [phone] Source Comments You are receiving this document as you are listed as the primary care provider,follow-up provider, or the patient has been referred to you for consultation.This is in compliance with the Medicare andWhite Hospitalcaid EHR Incentive Program,which states Providers who transition their patient to another setting of careor provider of care or refers their patient to another provider of care shouldprovide summary care record for each transition of care or referral. [place] Allergies Active Allergy Reactions Criticality Noted Date Comments Iodinated Contrast Media Unknown 09/06/2016 Uknown contrast reaction when young. She has tolerated Isovue 300 (iopamidol - 2011 CT scan) and Omnipaque (ioxehol - 2010 and 2012 and 2016 epidural steroid injections) Medications Medication Sig Dispensed Refills Start Date End Date Status amLODIPine (AKA NORVASC) 10 MG tablet Take 10 mg by mouth daily (every 24 hours). 03/07/2013 Active aspirin EC 81 MG enteric coated tablet Take 81 mg by mouth Daily. Reported on 10/12/2016 05/01/2014 Active losartan (AKA COZAAR) 25 MG tablet Take 25 mg by mouth daily (every 24 hours). 02/28/2014 Active furosemide (AKA LASIX) 40 MG tablet Take 40 mg by mouth daily (every 24 hours). 02/28/2014 Active atorvastatin (AKA LIPITOR) 80 MG tablet Take 80 mg by mouth nightly. 02/28/2014 Active ATENolol (AKA TENORMIN) 25 MG tablet Take 25 mg by mouth daily (every 24 hours). 02/28/2014 Active sertraline (AKA ZOLOFT) 50 MG tablet Take 50 mg by mouth daily (every 24 hours). 02/28/2014 Active omeprazole (PRILOSEC) 20 MG capsule Take 20 mg by mouth daily. 05/01/2014 Active cyanocobalamin 500 MCG tablet Take 500 mcg by mouth Daily. Reported on 09/06/2016 05/01/2014 Active Menthol, Topical Analgesic, (BLUE GEL) 2 % Apply topically. 05/01/2014 Active lidocaine (XYLOCAINE) 5 % ointment Apply to affected area prn 30 g 3 09/10/2016 Active Additional Information Patient not taking.Reported on 12/08/2021 HYDROcodone-acetami nophen (NORCO) 5-325 MG tablet Take 1 Tab by mouth every 6 hours as needed for Pain (Take 1 tablet by mouth every 6 hours as needed for Pain.). 30 Tab 0 10/06/2016 Active lancets (ACCU-CHEK FASTCLIX)Indication s:Uncontrolled diabetes mellitus type 2 without complications, unspecified keno terminal operator insulin use status,Benign essential HTN (HRC),Dyslipidemia (HRC) Use 1 Each to test two times a day. Use as directed. Pharmacy dispense brand based on insurance. 200 Each 3 10/21/2016 Active metFORMIN XR (GLUCOPHAGE XR) 500 MG 24 hour release tablet Take 2 Tablets by mouth every evening with a meal. 180 Tablet 3 05/17/2019 Active Additional Information Patient not taking.Reported on 07/20/2019 glipiZIDE (GLUCOTROL) 5 MG tablet Take 1 Tablet by mouth two times a day before meals. 180 Tablet 3 07/10/2019 Active Accu-Chek Zabrina Plus meterIndications:We ll controlled type 2 diabetes mellitus (HRC) Use 1 Each to test two times a day. Use as directed. Pharmacy dispense brand based on insurance. E11.65 1 Each 12/24/2019 Active blood glucose (ACCU-CHEK ZABRINA PLUS) test stripIndications:We ll controlled type 2 diabetes mellitus (HRC) Use 1 Each to test two times a day. 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 Staging:Pathologic:Stage IIIA(T1b, N1a, cM0) - Unsigned Immunizations Name Administration Dates Next Due Influenza IIV3 (Trivalent) Corbin diallo Highdose, 65+ Yrs (35747) 07/05/2016,05/01/2014 Family History Medical History Relation Name Comments Diabetes Father Cancer Mother Cervical CA Cancer, Pancreatic Mother Relation Name Status Comments Father Mother Social History Tobacco Use Types Packs/Day Years Used Date Smoking Tobacco: Former Cigarettes Q uit: 11/21/1979 Smokeless Tobacco: Never Alcohol Use Standard Drinks/Week Comments No 0 (1 standard drink = 0.6 oz pur e alcohol) Sex and Gender Information Value Date Recorded Sex Assigned at Not on file Gender Identity Not on file Sexual Orientation Not on file Last Filed Vital Signs Vital Sign Reading Time Taken Comments Blood Pressure 165/64 05/31/2023 2:36 PM CDT Pulse 52 05/31/2023 2:36 PM CDT Temperature 36.9 ??C (98.5 ??F) 10/12/2016 9:41 AM CS T Respiratory Rate 18 10/06/2016 2:05 PM DELI CUTTER SLICER Oxygen Saturation 96% 07/20/2019 2:35 PM DELI CUTTER SLICER Inhaled Oxygen Concentration - - Weight 82.2 kg (181 lb 3.2 oz) 05/31/2023 2:36 P M CDT Height 154.9 cm (5' 1) 09/14/2019 1:13 PM DELI CUTTER SLICER Body Mass Index 34.24 09/14/2019 1:13 PM DELI CUTTER SLICER Plan of Treatment Health Maintenance Due Date Last Done Comments Diabetes: Eye Exam 1945 Hep C Screening (Preventive Services) 1945 Medicare Annual Wellness Visit 1945 Zoster/Shingles (1 of 2) 1997 Dexa 01/27/2012 Diabetes: Foot Exam 09/21/2017 09/21/2016 Diabetes: Creatinine 06/26/2020 06/26/2019, 04/04/2018, 09/20/2016 Diabetes: Urine Microalbumin 06/26/2020 06/26/2019, 04/04/2018 COVID-19 Vaccine ( season) 2023 06/04/2021, 11/08/2020 Diabetes: HGBA1C 05/07/2023 02/04/2023, , 06/26/2019, Additional history exists Influenza (#1) 2024 06/03/2022, 05/08, 05/18/2019, Additional history exists Diabetes: Lipid Panel 06/26/2024 06/26/2019 DTaP/Tdap/Td (3 - Tdap) 05/08/2030 05/08/2020, 01/14 Pneumococcal 65+ Yrs Completed 01/24/2015, 06/01/20 12 HepA Aged Out No longer eligi ble based on patient's age to complete this topic HepB Aged Out No longer eligi ble based on patient's age to complete this topic Hib Aged Out No longer eligi ble based on patient's age to complete this topic IPV (Polio) Aged Out No longer eligi ble based on patient's age to complete this topic MCV4 Aged Out No longer eligi ble based on patient's age to complete this topic Procedures Procedure Name Priority Date/Time Associated Diagnosis Comments HGB A1C (EXTERNAL RESULT) Routine 02/04/2023 3:05 PM CDT ALBUMIN/CREAT RATIO Routine 06/26/2019 1 1:11 AM DELI CUTTER SLICER Well controlled type 2 diabetes mellitus (HRC) CREATININE / GFR Routine 06/26/2019 11:0 4 AM DELI CUTTER SLICER Well controlled type 2 diabetes mellitus (HRC) Benign essential HTN LDL CHOLESTEROL, DIRECT MEASURED Routine 06/26/2019 11:04 AM DELI CUTTER SLICER Dyslipidemia from Last 3 Months or Most Recently Relevant to Health Maintenance Results * Microalbumin Urine Random (06/26/2019 11:11 AM DELI CUTTER SLICER) Albumin, Urine, Random 16.1 mg/L 06/26/2019 12:52 PM [facility] Creatinine, Urine, Random 269 >20 mg/dL 06/26/2019 12:52 PM [facility] Albumin/Creati nine Ratio, Urine, Random 6 <30 mg/g 06/26/2019 12:52 PM [facility] Urine,random 06/26/2019 11:1 1 AM DELI CUTTER SLICER 06/26/2019 11:11 AM DELI CUTTER SLICER Radha Burch APRN, CARMEN LAB_1 Performing Organization Address [facility] Co de Phone Number [facility] [address] [address], [facility] [phone] * Direct LDL (06/26/2019 11:04 AM DELI CUTTER SLICER) LDL, Direct 79 <=130 mg/dL 06/26/2019 11:37 AM [facility] Blood Venipuncture / Unknown 06/26/2019 11:04 AM DELI CUTTER SLICER 06/26/2019 11:04 AM DELI CUTTER SLICER Radha Burch APRN, ASSEMBLING MACHINE OPERATOR LAB_1 Performing Organization Address [facility] de Phone Number [facility] [address] [phone], [facility] [phone] * Creatinine (06/26/2019 11:04 AM DELI CUTTER SLICER) Creatinine 0.90 0.55 - 1.02 mg/dL 06/26/2019 11:37 AM [facility] GFR, Estimated >60 >60 mL/min/1.7 3m2 06/26/2019 11:37 AM [facility] GFR, Est If >60 >60 mL/min/1.7 3m2 06/26/2019 11:37 AM [facility] Blood Venipuncture / Unknown 06/26/2019 11:04 AM DELI CUTTER SLICER 06/26/2019 11:04 AM DELI CUTTER SLICER Radha Burch APRN, CNP LAB_1 Performing Organization Address [facility] Co de Phone Number [facility] [address] [place] [address], [facility] [phone] from Last 3 Months or Most Recently Relevant to Health Maintenance Advance Directives * Full Code (Latest Code Status on File) Date Activated Date Inactivated Comments 10/05/2016 5:23 PM 10/06/2016 5:55 PM Care Teams Ic Designer Standard Cells Relationship Specialty Start Date End Date Lashell Delgadillo MD [address] [place] [address] PCP - General 03/18/14
--- OUTSIDE RECORDS SUMMARY | 2024-02-24 12:43 | XMS_ITS ---
Author Organization [place] Address [address] [place] [address]. [place] [address] Care Team Providers Care Senior Information Security Analyst Name Role Phone Ying Gutierrez MD Unavailable [phone] Katie Bowen MD Unavailable [phone] Kiana Villanueva Industrial Real Estate Agent ORTHOPAEDIC PHYSICIAN ASSISTANT Unavailable Christina Lilly MD Unavailable Kiarra Winter RN Unavailable Christina Lilly MD Unavailable [phone] Rangel Krueger Alpaugh Primary Care Provider + Active Problems Problem Noted Date Diagnosed Date Nausea 12/09/2016 No-show for appointment 12/02/2016 Malignant neoplasm of vulva 11/08/2016 Current Oncology Plans No current plan information found. Past Plans INFUSION Plan Name Start Date Discontinue Date Treatment Medications Discontinue Reason Plan Provider GENERIC INFUSION WITH PRE-MEDICATION S 12/10/2016 01/06/2017 No medications scheduled. Therapy Complete Katie Bowen MD ONCOLOGY TREATMENT Plan Name Start Date Discontinue Date Treatment Medications Discontinue Reason Plan Provider Cycles OP STRIP CATCHER/ONC - CISplatin + radiation 11/15/2016 01/06/2017 CISplatin (PLATINOL) infusion Therapy Complete Katie Bowen MD 1 of 1 cycle started Radiation Treatments * No radiation treatments are documented for this patient in [facility]. Treatments may have been administered in another system.
--- OUTSIDE RECORDS SUMMARY | 2024-02-24 12:43 | XMS_ITS | Encounter Summary ---
Author Organization [place] Address [address] [place] [address]. [place] [address] Care Team Providers Care Stair Builder Name Role Phone Ying Gutierrez MD Unavailable [phone] Katie Bowen MD Unavailable [phone] Kiana Villanueva Generator Switchboard Operator SOCK IRONER Unavailable [phone] Christina Lilly MD Unavailable Kiarra Winter RN Unavailable [phone] Christina Lilly MD Unavailable [phone] Rangel Krueger Primary Care Provider + Encounter Details Date Type Department Care Team (Late st Contact Info) Description 08/02/2023 MyC Medical Advice [facility] [address]th [place] [address] Starr Meade Social History Tobacco Use Types Packs/Day Years Used Date Smoking Tobacco: Former Cigarettes 0 08/08/1954 - 08/08/1969 Smokeless Tobacco: Never Alcohol Use Standard Drinks/Week Comments No 0 (1 standard drink = 0.6 oz pur e alcohol) Adolescent Education Answer Date Record ed Getting School Help Needed Not on file 04/29 Sex and Gender Information Value Date Recorded Sex Assigned at Female 06/12/2023 2:39 PM ASSISTANT DIRECTOR OF NURSING Gender Identity Female 06/12/2023 2:39 PM ASSISTANT DIRECTOR OF NURSING Sexual Orientation Not on file documented as of this encounter Plan of Treatment Not on file documented as of this encounter Visit Diagnoses Not on filedocumented in this encounter Care Teams Stair Builder Relationship Specialty Start Date End Date Clinic, [facility] Rom[facility] [address] [place] [address] [place] [phone] PCP - General 07/13/23 Ying Gutierrez MD [address] [place] [address] Oncology 11/02/16 Katie Bowen MD [address] [place] [phone] Gynecologic Oncology 11/02/16 Kiana Villanueva Generator Switchboard Operator, SOCK IRONER [address] [place] [address] Nurse Practitioner 06/07/23 Christina Lilly MD [address] [place] [address] Gynecologic Oncology 06/07/23 Kiarra Winter, RN Specialty Soft Tile Setter Hematology & Oncology 06/14/23 Christina Lilly MD [address] [place] [address] Assigned Cancer Care Provider 06/25/23 documented as of this encounter
--- OUTSIDE RECORDS SUMMARY | 2024-02-24 12:43 | XMS_ITS | Clinical Summary ---
Author Organization [place] Address [address] [place] [address]. [place] [address] Care Team Providers Care Certified Industrial Hygienist Name Role Phone Ying Gutierrez MD Unavailable [phone] Katie Bowen MD Unavailable Kiana Villanueva Hyperbaric Tech BLINTZE ROLLER Unavailable Christina Lilly MD Unavailable Kiarra Winter RN Unavailable [phone] Christina Llily MD Unavailable [phone] Rangel Krueger Primary Care Provider + Allergies Active Allergy Reactions Criticality Noted Date Comments Prochlorperazine Other (See Comments) 11/22/2016 twitchy Contrast Dye 01/09/2013 Other reaction(s): *Unknown - Childhood Rxn Uknown contrast reaction when young. She has tolerated Isovue 300 (iopamidol - 2011 CT scan) and Omnipaque (ioxehol - 2010 and 2012 and 2015 epidural steroid injections) Iodinated Contrast Media 09/06/2016 Other reaction(s): Unknown Uknown contrast reaction when young. She has tolerated Isovue 300 (iopamidol - 2011 CT scan) and Omnipaque (ioxehol - 2010 and 2012 and 2015 epidural steroid injections) Iodine 10/29/2016 Possible reaction to contrast Medications Medication Sig Dispensed Refills Start Date End Date Status VITAMIN D, CHOLECALCIFEROL, PO Take 1,000 Units by mouth daily Reported on 12/17/2016 Active HYDROcodone-acetamin ophen (NORCO) 5-325 MG per tablet Take 1 tablet by mouth as needed Reported on 12/07/2016 02/26/2016 Active glipiZIDE (GLUCOTROL) 5 MG tablet Take 5 mg by mouth 2 times daily (before meals) Reported on 12/17/2016 01/18/2016 Active losartan (COZAAR) 25 MG tablet Take 25 mg by mouth daily 12/28/2015 Active metFORMIN (GLUCOPHAGE-XR) 500 MG 24 hr tablet Take 500 mg by mouth 2 times daily (with meals) Reported on 12/17/2016 10/28/2016 Active sertraline (ZOLOFT) 50 MG tablet Take 50 mg by mouth daily Reported on 12/17/2016 12/25/2015 Active Glucose Blood (BLOOD GLUCOSE TEST STRIPS) STRP 2 strips Reported on 12/17/2016 10/22/2016 Active Lancets MISC 1 each 10/21/2016 Active amLODIPine (NORVASC) 10 MG tablet Take 10 mg by mouth daily 03/07/2013 Active aspirin 81 MG EC tablet Take 81 mg by mouth daily Reported on 12/02/2016 05/01/2014 Active atenolol (TENORMIN) 25 MG tablet Take 25 mg by mouth daily Reported on 12/17/2016 02/28/2014 Active atorvastatin (LIPITOR) 80 MG tablet Take 80 mg by mouth daily Reported on 12/02/2016 02/28/2014 Active omeprazole (PRILOSEC) 40 MG capsuleIndications:M alignant neoplasm of vulva (H) Take 1 capsule (40 mg) by mouth daily 30 capsule 1 11/23/2016 Active furosemide (LASIX) 40 MG tablet Take 40 mg by mouth 01/08/2023 Active ascorbic acid (VITAMIN C) 250 MG CHEW chewable tablet Take 250 mg by mouth daily Active zinc gluconate 50 MG tablet Take 50 mg by mouth daily Active multivitamin w/minerals (MULTI-VITAMIN) tablet Take 1 tablet by mouth daily Active loperamide (IMODIUM) 2 MG capsule Take 2 mg by mouth 4 times daily as needed for diarrhea Active acetaminophen (TYLENOL) 325 MG tabletIndications:Ma lignant neoplasm of vulva (H) Take 2 tablets (650 mg) by mouth every 6 hours as needed for mild pain 24 tablet 07/13/2023 Active senna-docusate (SENOKOT-S/PERICOLAC E) 8.6-50 MG tabletIndications:Ma lignant neoplasm of vulva (H) Take 1-2 tablets by mouth 2 times daily 30 tablet 07/13/2023 Active oxyCODONE (ROXICODONE) 5 MG tabletIndications:Ma lignant neoplasm of vulva (H) Take 1 tablet (5 mg) by mouth every 6 hours as needed for moderate to severe pain 4 tablet 07/13/2023 Active lidocaine (LMX4) 4 % external creamIndications:Mal ignant neoplasm of vulva (H) Apply topically once as needed for mild pain 15 g 07/13/2023 Active silver sulfADIAZINE (SILVADENE) 1 % external creamIndications:Mal ignant neoplasm of vulva (H) Apply topically daily 20 g 07/13/2023 Active Active Problems Problem Noted Date Diagnosed Date Nausea 12/09/2016 No-show for appointment 12/02/2016 Malignant neoplasm of vulva 11/08/2016 Family History Medical History Relation Comments Breast Cancer Maternal Aunt Uterine Cancer Mother pancreas cancer Relation Status Comments Maternal Aunt Mother Social History Tobacco Use Types Packs/Day [...] Sex Assigned at Female 06/12/2023 2:39 PM API DEVELOPER Gender Identity Female 06/12/2023 2:39 PM API DEVELOPER Sexual Orientation Not on file Last Filed Vital Signs Vital Sign Reading Time Taken Comments Blood Pressure 156/79 07/26/2023 12:13 PM API DEVELOPER Pulse 59 07/26/2023 12:13 PM API DEVELOPER Temperature 36.9 ??C (98.5 ??F) 07/26/2023 12:[address] Respiratory Rate 16 07/26/2023 12:13 PM API DEVELOPER Oxygen Saturation 96% 07/26/2023 12:13 PM API DEVELOPER Inhaled Oxygen Concentration - - Weight 80.7 kg (178 lb) 07/26/2023 12:13 PM API DEVELOPER Height 154.9 cm (5' 1) 07/26/2023 12:13 PM API DEVELOPER Body Mass Index 33.63 07/26/2023 12:13 PM API DEVELOPER Plan of Treatment Health Maintenance Due Date Last Done Comments ADVANCE CARE PLANNING 1945 ANNUAL REVIEW OF HM ORDERS 1945 DEXA 1945 LIPID 1945 HEPATITIS C SCREENING 1965 ZOSTER IMMUNIZATION (1 of 2) 1997 RSV VACCINE ( & 60+) (1 - 1-dose 60+ series) 2007 FALL RISK ASSESSMENT 01/27/2012 GLUCOSE 12/07/2019 12/06/2016, 11/07, 11/22/2016, Additional history exists COVID-19 Vaccine ( - season) 2023 06/04/2021, 11/08/2020 PHQ-2 (once per calendar year) 2023 MEDICARE ANNUAL WELLNESS VISIT 02/05/2024 02/04/2023 INFLUENZA VACCINE (#1) 2024 2, 05/19/2021, 05/18/2019, Additional history exists DTAP/TDAP/TD IMMUNIZATION (3 - Td or Tdap) 05/08/2030 05/08/2020, 01/14/2010 Pneumococcal Vaccine: 65+ Years Completed 01/24/2015, 06/01/2012 LUNG CANCER SCREENING Discontinued 07/20/2019 , 03/23/2018, 11/28/2015, Additional history exists HPV IMMUNIZATION Aged Out No longer e ligible based on patient's age to complete this topic IPV IMMUNIZATION Aged Out No longer e ligible based on patient's age to complete this topic MENINGITIS IMMUNIZATION Aged Out No l onger eligible based on patient's age to complete this topic RSV MONOCLONAL ANTIBODY Aged Out No l onger eligible based on patient's age to complete this topic Procedures Procedure Name Priority Date/Time Associated Diagnosis Comments CT CHEST W/O CONTRAST Routine 07/20/2019 12:36 PM API DEVELOPER BASIC METABOLIC PANEL Timed 12/06/2016 8:59 AM CDT Malignant neoplasm of vulva (H) from Last 3 Months or Most Recently Relevant to Health Maintenance Results * (ABNORMAL) Basic metabolic panel (12/06/2016 8:59 AM CDT) Sodium 144 133 - 144 mmol/L [facility] Potassium 3.8 3.4 - 5.3 mmol/L [facility] Chloride 107 94 - 109 mmol/L [facility] Carbon Dioxide 28 20 - 32 mmol/L [facility] Anion Gap 9 3 - 14 mmol/L [facility] Glucose 147(H) 70 - 99 mg/dL [facility] Urea Nitrogen 10 7 - 30 mg/dL [facility] Creatinine 0.84 0.52 - 1.04 mg/dL [facility] GFR Estimate 67 >60 mL/min/1.7 m2 [facility] Comment:Non GFR Calc GFR Estimate If Black 81 >60 mL/min/1.7 m2 [facility] Comment: GFR Calc Calcium 8.0(L) 8.5 - 10.1 mg/dL [facility] Blood specimen (specimen) 12/06/2016 8:59 AM CDT 12/06/2016 9:00 AM CDT Ying Gutierrez MD LAB - BLOOD ORDERA BLES [address] [phone] from Last 3 Months or Most Recently Relevant to Health Maintenance Care Teams Certified Industrial Hygienist Relationship Specialty Start Date End Date Clinic, [facility] [address] [place] [address] [place] [address] PCP - General 07/13/23 Ying Gutierrez MD [address] [place] [address] [id number] MD Oncology 11/02/16 Katie Bowen MD [address] [place] [address] [phone] Gynecologic Oncology 11/02/16 Kiana Villanueva Hyperbaric Tech, BLINTZE ROLLER [address] [place] [address] Nurse Practitioner 06/07/23 Christina Lilly MD [address] [place] [address] Gynecologic Oncology 06/07/23 Kiarra Winter, RN Specialty Metal Roofer Hematology & Oncology 06/14/23 Christina Lilly MD [address] [place] [address] Assigned Cancer Care Provider 06/25/23
--- OUTSIDE RECORDS SUMMARY | 2024-02-24 12:43 | XMS_ITS | Encounter Summary ---
Author Organization [facility] Address [address] [place] [address]. [place] [address] Care Team Providers Care Correspondence Clerk Name Role Phone Ying Gutierrez MD Unavailable [phone] Katie Bowen MD Unavailable [phone] Kiana Villanueva Np JAVA SQL DEVELOPER Unavailable [phone] Christina Lilly MD Unavailable No Ref-Primary, Physician Primary Care Provider Kiarra Winter RN Unavailable [phone] Christina Lilly MD Unavailable [facility], Rangel Romero Primary Care Provider + Encounter Details Date Type Department Care Team (Late st Contact Info) Description 06/16/2023 MyC Medical Advice [address] [address] Hilda Funez [facility] Social History Tobacco Use Types Packs/Day Years [...] Sex Assigned at Female 06/12/2023 2:39 PM CLOTHES MODEL Gender Identity Female 06/12/2023 2:39 PM CLOTHES MODEL Sexual Orientation Not on file documented as of this encounter Plan of Treatment Not on file documented as of this encounter Visit Diagnoses Not on filedocumented in this encounter Care Teams Correspondence Clerk Relationship Specialty Start Date End Date No Ref-Primary, Physician PCP - General 06/07/23 07/12/23 [facility], Rangel Romero [address] [place] [address] [place] [address] PCP - General 07/13/23 Ying Gutierrez MD [address] [place] [address] [phone] MD Oncology 11/02/16 Katie Bowen MD [address] [place] [phone] Gynecologic Oncology 11/02/16 Kiana Villanueva Tobacco Packing Machine Operator, JAVA SQL DEVELOPER [address] [place] [address] Nurse Practitioner 06/07/23 Christina Lilly MD [address] [place] [address] Gynecologic Oncology 06/07/23 Kiarra Winter, RN Specialty Train Operator Hematology & Oncology 06/14/23 Christina Lilly MD [address] [place] [phone] Assigned Cancer Care Provider 06/25/23 documented as of this encounter
--- OUTSIDE RECORDS SUMMARY | 2024-02-24 12:43 | XMS_ITS | Referral Summary ---
Author Organization [facility] Address [address] [place] [address]. [place] [address] Care Team Providers Care Supervisor Roller Shop Name Role Phone Ying Gutierrez MD Unavailable Katie Bowen MD Unavailable Kiana Villanueva Narcotics Detective TURNTABLE OPERATOR Unavailable Christina Lilly MD Unavailable Kiarra Winter RN Unavailable [phone] Christina Lilly MD Unavailable [phone] Rangel Krueger Primary Care Provider + Allergies [...] appointment 12/02/2016 Malignant neoplasm of vulva 11/08/2016 Social History Tobacco Use Types Packs/Day Years [...] Sex Assigned at Female 06/12/2023 2:39 PM RESTAURANT ASSISTANT MANAGER Gender Identity Female 06/12/2023 2:39 PM RESTAURANT ASSISTANT MANAGER Sexual Orientation Not on file Last Filed Vital Signs Vital Sign Reading Time Taken Comments Blood Pressure 156/79 07/26/2023 12:13 PM RESTAURANT ASSISTANT MANAGER Pulse 59 07/26/2023 12:13 PM RESTAURANT ASSISTANT MANAGER Temperature 36.9 ??C (98.5 ??F) 07/26/2023 12:[address] Respiratory Rate 16 07/26/2023 12:13 PM RESTAURANT ASSISTANT MANAGER Oxygen Saturation 96% 07/26/2023 12:13 PM RESTAURANT ASSISTANT MANAGER Inhaled Oxygen Concentration - - Weight 80.7 kg (178 lb) 07/26/2023 12:13 PM RESTAURANT ASSISTANT MANAGER Height 154.9 cm (5' 1) 07/26/2023 12:13 PM RESTAURANT ASSISTANT MANAGER Body Mass Index 33.63 07/26/2023 12:13 PM RESTAURANT ASSISTANT MANAGER Plan of Treatment Not on file Procedures Procedure Name Priority Date/Time Associated Diagnosis Comments CT CHEST W/O CONTRAST Routine 07/20/2019 12:36 PM RESTAURANT ASSISTANT MANAGER BASIC METABOLIC PANEL Timed 12/06/2016 8:59 AM CDT Malignant neoplasm of vulva (H) from Last 3 Months or Most Recently Relevant to Health Maintenance Results * (ABNORMAL) Basic metabolic panel (12/06/2016 8:59 AM CDT) Sodium 144 133 - 144 mmol/L [facility] Potassium 3.8 3.4 - 5.3 mmol/L [facility] Chloride 107 94 - 109 mmol/L [facility] Carbon Dioxide 28 20 - 32 mmol/L [facility] Anion Gap 9 3 - 14 mmol/L [facility] Glucose 147(H) 70 - 99 mg/dL [facility] Urea Nitrogen 10 7 - 30 mg/dL [facility] Creatinine 0.84 0.52 - 1.04 mg/dL [facility] GFR Estimate 67 >60 mL/min/1.[address] [facility] Comment:Non GFR Calc GFR Estimate If Black 81 >60 mL/min/1.[address] [facility] Comment: GFR Calc Calcium 8.0(L) 8.5 - 10.1 mg/dL [facility] Blood specimen (specimen) 12/06/2016 8:59 AM CDT 12/06/2016 9:00 AM CDT iYng Gutierrez MD LAB - BLOOD [facility] [address] [phone] from Last 3 Months or Most Recently Relevant to Health Maintenance Care Teams Supervisor Roller Shop Relationship Specialty Start Date End Date Clinic, Rangel Romero [address] [place] [phone] PCP - General 07/13/23 Ying Gutierrez MD [address] [place] [phone] Oncology 11/02/16 Katie Bowen MD [address] [place] [phone] Gynecologic Oncology 11/02/16 Kiana Villanueva Narcotics Detective, TURNTABLE OPERATOR [address] [place] [phone] Nurse Practitioner 06/07/23 Christina Lilly MD [address] [place] [phone] Gynecologic Oncology 06/07/23 Kiarra Winter, RN Specialty Clothing Room Supervisor Hematology & Oncology 06/14/23 Christina Lilly MD [address] [place] [phone] Assigned Cancer Care Provider 06/25/23
--- OUTSIDE RECORDS SUMMARY | 2024-02-24 12:43 | XMS_ITS | Encounter Summary ---
Author Organization [facility] Address [address] [place] [address]. [place] [address] Care Team Providers Care Roller Helper Name Role Phone None Primary Care Provider Unavailjulia e Ying Gutierrez MD Unavailable Ktaie Bowen MD Unavailable [phone] Geneva Weber RN Unavailable Kiana Villanueva Np NUTRITION SERVICES ASSISTANT Unavailable Christina Lilly MD Unavailable [phone] No Ref-Primary, Physician Primary Care Provider Kiarra Winter RN Unavailable Christina Lilly MD Unavailable [phone] [facility], Rangel Romero Primary Care Provider + Encounter Details Date Type Department Care Team (Late st Contact Info) Description 12/05/[address] [facility] [address] [place] [address] Lima Fraga APRN [facility] [address] [facility] [address] [place] [address] Social History Tobacco Use Types Packs/Day Years Used Date Smoking Tobacco: Former Cigarettes 0 08/08/1954 - 08/08/1969 Smokeless Tobacco: Never Alcohol Use Standard Drinks/Week Comments No 0 (1 standard drink = 0.6 oz pur e alcohol) Sex and Gender Information Value Date Recorded Sex Assigned at Female 06/12/2023 2:39 PM CREW BOSS Gender Identity Female 06/12/2023 2:39 PM CREW BOSS Sexual Orientation Not on file documented as of this encounter Plan of Treatment Not on file documented as of this encounter Visit Diagnoses Not on filedocumented in this encounter Care Teams Roller Helper Relationship Specialty Start Date End Date None PCP - General 10/26/16 04/07/17 No Ref-Primary, Physician PCP - General 06/07/23 07/12/23 [facility], Rangel Romero [address] [place] [address] [place] [phone] PCP - General 07/13/23 Ying Gutierrez MD [address] [place] [address] [phone] MD Oncology 11/02/16 Katie Bowen MD [address] [place] [address] [phone] Gynecologic Oncology 11/02/16 Geneva Weber RN [facility] Hotel Server, [phone] Continuity Hotel Server Gynecologic Oncology 11/08/16 12/12/19 Kiana Villanueva Silver Solution Mixer, NUTRITION SERVICES ASSISTANT [address] [place] [phone] Nurse Practitioner 06/07/23 Christina Lilly MD [address] [place] [phone] Gynecologic Oncology 06/07/23 Kiarra Winter, VAN Specialty Hotel Server Hematology & Oncology 06/14/23 Christina Lilly MD [address] [phone] Assigned Cancer Care Provider 06/25/23 documented as of this encounter
--- OUTSIDE RECORDS SUMMARY | 2024-02-24 12:43 | XMS_ITS | Encounter Summary ---
Author Organization [facility] Address [address] [place] [address]. [place] [address] Care Team Providers Care Administrative Analyst Name Role Phone None Primary Care Provider Unavailjulia e Ying Gutierrez MD Unavailable [phone] Katie Bowen MD Unavailable Geneva Weber RN Unavailable Kiana Villanueva Np HAND SAMPLE MAKER Unavailable Christina Lilly MD Unavailable No Ref-Primary, Physician Primary Care Provider Kiarra Winter RN Unavailable [phone] Christina Lilly MD Unavailable [facility], Rangel Romero Primary Care Provider + Encounter Details Date Type Department Care Team (Late st Contact Info) Description 11/22/2016 [facility] [address] [place] [address] Faustina Bhakta Social History Tobacco Use Types Packs/Day Years Used Date Smoking Tobacco: Former Cigarettes 0 08/08/1954 - 08/08/1969 Smokeless Tobacco: Never Alcohol Use Standard Drinks/Week Comments No 0 (1 standard drink = 0.6 oz pur e alcohol) Sex and Gender Information Value Date Recorded Sex Assigned at Female 06/12/2023 2:39 PM CENTERLESS GRINDER OPERATOR Gender Identity Female 06/12/2023 2:39 PM CENTERLESS GRINDER OPERATOR Sexual Orientation Not on file documented as of this encounter Plan of Treatment Not on file documented as of this encounter Visit Diagnoses Not on filedocumented in this encounter Care Teams Administrative Analyst Relationship Specialty Start Date End Date None PCP - General 10/26/16 04/07/17 No Ref-Primary, Physician PCP - General 06/07/23 07/12/23 [facility], Rangel Romero [address] [place] [address] [place] [address] PCP - General 07/13/23 Ying Gutierrez MD [address] [place] [address] [phone] Oncology 11/02/16 Katie Bowen MD [address] [place] [address] [phone] Gynecologic Oncology 11/02/16 Geneva Weber, [email or web address] Credit Collection Specialist, [phone] Continuity Credit Collection Specialist Gynecologic Oncology 11/08/16 12/12/19 Kiana Villanueva Cone Tender, HAND SAMPLE MAKER [address] [place] [address] [phone] Nurse Practitioner 06/07/23 Christina Lilly MD [address] [place] [address] [phone] Gynecologic Oncology 06/07/23 Kiarra Winter, RN Specialty Credit Collection Specialist Hematology & Oncology 06/14/23 Christina Lilly MD [address] [place] [address] [phone] Assigned Cancer Care Provider 06/25/23 documented as of this encounter
== END 2024-02-24 12:40 | disposition home or self-care (01) ==
LOC: INJ CL 12:41
PROVIDERS: PCP Internal Medicine; Visit Provider Family Medicine
DX: M54.16 Radiculopathy, lumbar region (principal); M48.062 Spinal stenosis, lumbar region with neurogenic claudication
CPT/HCPCS: 62323; J0702; Q9966

== ENCOUNTER 2024-09-06 14:30 | Outpatient (RCR) | payer MEDICARE, BC, SELFPAY | END 2025-01-04 23:59 | disposition home or self-care (01) | PROVIDERS: PCP Internal Medicine; Visit Provider Family Medicine | DX: M54.16 Radiculopathy, lumbar region (principal); M51.26 Other intervertebral disc displacement, lumbar region; M47.816 Spondylosis without myelopathy or radiculopathy, lumbar region; M70.62 Trochanteric bursitis, left hip; Z51.89 Encounter for other specified aftercare | CPT/HCPCS: 97110; 97140; 97162 ==